=== PATIENT | female | born 2000 | race Caucasian/White ===

== ENCOUNTER 2019-10-13 17:47 | Emergency (ER) | payer BC ==
[~2019-10-13] VITALS: Ht 175.3 cm; Wt 59.0 kg
[2019-10-13 18:21] LABS: BASOPHILS % (AUTO) 0.4 % (0-1); EOSINOPHILS % (AUTO) 0.5 % (0-6); HEMATOCRIT 42.2 % (35.0-45.0); HEMOGLOBIN 14.4 g/dl (12.0-16.0); LYMPHOCYTES # (AUTO) 1.5 X10'3 (1.1-4.8); LYMPHOCYTES % (AUTO) 18.9 % (21-51); MEAN CORPUSCULAR HEMOGLOBIN 29.4 PG (27.0-31.0); MEAN CORPUSCULAR VOLUME 86.4 FL (78-98); MEAN PLATELET VOLUME 9.1 FL (7.4-10.4); MONOCYTES # (AUTO) 0.4 X10'3 (0-0.9); NEUTROPHILS % (AUTO) 75.2 % (42-75); PLATELET COUNT 208 X10'3 (140-440); RED BLOOD COUNT 4.89 X10'6 (4.20-5.60); RED CELL DISTRIBUTION WIDTH 12.4 % (11.5-14.5)
[2019-10-13 18:31] LABS: ALANINE AMINOTRANSFERASE 18 U/L (12-78); ALBUMIN 4.4 G/DL (3.4-5.0); ALBUMIN/GLOBULIN RATIO 1.3 (1.1-1.5); ALKALINE PHOSPHATASE 67 IU/L (20-180); ANION GAP 9 (8-16); ASPARTATE AMINO TRANSFERASE 17 U/L (10-37); BILIRUBIN,TOTAL 0.8 MG/DL (0.1-1.0); BLOOD UREA NITROGEN 9 MG/DL (7-18); BUN/CREATININE RATIO 10.1 (6.6-38.0); CALCIUM 9.2 MG/DL (8.5-10.1); CHLORIDE 106 MMOL/L (99-107); CREATININE 0.89 MG/DL (0.40-0.90); GLUCOSE 124 MG/DL (70-104); POTASSIUM 3.7 MMOL/L (3.5-5.1); SODIUM 143 MMOL/L (135-145); TOTAL PROTEIN 7.7 G/DL (6.4-8.2); eGFR 81 ML/MIN
[2019-10-13 18:38] LABS: ETHANOL < 0.010 GM/DL (0.0-0.010)
[2019-10-13 18:59] LABS: URINE HCG NEGATIVE (NEG)
--- NOTE | 2019-10-13 18:59 | NUR ---
19 year old female moved to bed 26 from the main ER. She initially self presented to the ER for mental health evaluation and treatment. She has been seeking mental health services after having increasing depression, suicidal thoughts to use a gun, and high anxiety. She stated that she has made an appointment for hyponotherapy and a therapist appointment. Earlier in the day she went to [facility] and they referred her to the ER. She denies that she is actively hallucinating but she did have a response delay but she also is currently very anxious. She does not take any psychiatric medications and she has never been in a psychiatric hospital. She is currently a student at [employer] and lives at home with her grandmother, mother and her brother. She stated that she has thoughts of shooting herself in the head but does not have the intent and she does not have access to weapons.
[2019-10-13] MEDS ORDERED: NO HOME MEDS (19:10)
[2019-10-13 19:13] LABS: URINE AMPHETAMINE SCREEN NEGATIVE (Neg); URINE BARBITUATE SCREEN NEGATIVE (Neg); URINE BENZODIAZEPINES SCREEN NEGATIVE (Neg); URINE CANNABINOID SCREEN POSITIVE (Neg); URINE COCAINE SCREEN NEGATIVE (Neg); URINE METHADONE SCREEN NEGATIVE (Neg); URINE OPIATE SCREEN NEGATIVE (Neg); URINE PHENCYCLIDINE SCREEN NEGATIVE (Neg)
[2019-10-13] MEDS ORDERED: LORazepam 1 MG tablet PO ONE ×2 (20:15→21:55)
--- NOTE | 2019-10-13 20:21 | NUR ---
The patient is up and restless. She is complaining of high anxiety. Dr. Elizalde made aware and orders received.
--- NOTE | 2019-10-13 22:29 | NUR ---
The patient complained of continued anxiety and Greg RN notifed MD and orders received.
[2019-10-13] MEDS ORDERED: quetiapine 100mg tablet PO ONE (22:55)
--- NOTE | 2019-10-13 23:02 | NUR ---
Patient requesting to have sleeping medication. Dr. Elizalde made aware and orders received. The patient was made aware that [facility] would not be able to see the patient tonight.
--- NOTE | 2019-10-13 23:47 | NUR ---
The patient appears to be sleeping
--- NOTE | 2019-10-14 01:58 | NUR ---
The patient appears to be sleeping
--- NOTE | 2019-10-14 04:24 | NUR ---
The patient appears to be asleep
[2019-10-14 05:23] VITALS: BP 108/69
--- NOTE | 2019-10-14 11:34 | NUR ---
[facility] HAS RELEASED PT FROM [address] CLARK WILL DC PT.
== END 2019-10-14 12:00 | disposition home or self-care (01) ==
LOC: ER 17:48
DX: R45.851 Suicidal ideations (principal); F90.9 Attention-deficit hyperactivity disorder, unspecified type; F17.200 Nicotine dependence, unspecified, uncomplicated; F12.90 Cannabis use, unspecified, uncomplicated; R94.6 Abnormal results of thyroid function studies
CPT/HCPCS: 36415; 80053; 80305; 80320; 81025; 84443; 85025; 99284

== ENCOUNTER 2022-05-15 21:53 | Emergency (ER) | payer BC, SELFPAY ==
[~2022-05-15] VITALS: Ht 172.7 cm; Wt 61.4 kg
[~2022-05-15 21:53] MED LIST: NO HOME MEDS
[2022-05-15 23:35] LABS: URINE HCG NEGATIVE (NEG)
[2022-05-15 23:37] LABS: CLARITY,URINE CLOUDY (Clear); COLOR,URINE YELLOW (Yellow); GLUCOSE, URINE NEGATIVE (Neg); KETONES,URINE TRACE mg/dl (Neg); LEUKOCYTE ESTERASE ,URINE NEGATIVE (Neg); NITRITES, URINE NEGATIVE (Neg); OCCULT BLOOD,URINE SMALL (Neg); PROTEIN,URINE TRACE mg/dl (Neg); UROBILINOGEN,URINE 0.2 E.U/dL (0.2-1.0)
[2022-05-15] MEDS ORDERED: diphenhydrAMINE 25mg capsule PO ONE (23:40)
[2022-05-15] MEDS ORDERED: LORazepam 1 MG tablet PO ONE (23:40)
[2022-05-15 23:43] LABS: UA COLLECTION TYPE CLN CATCH MIDSTREAM
[2022-05-15 23:44] LABS: MUCUS STRANDS MODERATE /LPF (Neg); SQUAMOUS EPITHELIAL CELL,UR MANY /LPF (FEW)
[2022-05-15 23:45] LABS: CAL OXALATE CRYSTALS 4+ /HPF (NEGATIVE)
[2022-05-15 23:46] LABS: BACTERIA,URINE 1+ /HPF (Neg)
[2022-05-15 23:47] LABS: TRANSITIONAL EPI CELLS,URINE FEW /HPF; WBC,URINE 0-4 /HPF (0-4)
[2022-05-15 23:49] LABS: URINE AMPHETAMINE SCREEN NEGATIVE (Neg); URINE BARBITUATE SCREEN NEGATIVE (Neg); URINE BENZODIAZEPINES SCREEN NEGATIVE (Neg); URINE CANNABINOID SCREEN NEGATIVE (Neg); URINE COCAINE SCREEN NEGATIVE (Neg); URINE METHADONE SCREEN NEGATIVE (Neg); URINE OPIATE SCREEN NEGATIVE (Neg); URINE PHENCYCLIDINE SCREEN NEGATIVE (Neg)
[2022-05-15 23:51] LABS: BASOPHILS % (AUTO) 0.5 % (0-1); EOSINOPHILS # (AUTO) 0.2 X10'3 (0-0.9); HEMATOCRIT 39.3 % (35.0-45.0); HEMOGLOBIN 13.4 g/dl (12.0-16.0); LYMPHOCYTES # (AUTO) 2.2 X10'3 (1.1-4.8); LYMPHOCYTES % (AUTO) 26.4 % (21-51); MEAN CORPUSCULAR HEMOGLOBIN 29.7 PG (27.0-31.0); MEAN CORPUSCULAR HGB CONC 34.1 g/dL (33.0-36.5); MEAN PLATELET VOLUME 9.6 FL (7.4-10.4); MONOCYTES # (AUTO) 0.9 X10'3 (0-0.9); MONOCYTES % (AUTO) 10.5 % (2-12); NEUTROPHILS % (AUTO) 60.6 % (42-75); PLATELET COUNT 202 X10'3 (140-440); RED BLOOD COUNT 4.52 X10'6 (4.20-5.60); RED CELL DISTRIBUTION WIDTH 12.4 % (11.5-14.5); WHITE BLOOD COUNT 8.3 X10'3 (4.5-11.0)
[2022-05-15 23:58] LABS: ALANINE AMINOTRANSFERASE 12 U/L (12-78); ALBUMIN 4.3 G/DL (3.4-5.0); ALBUMIN/GLOBULIN RATIO 1.3 (1.1-1.5); ALKALINE PHOSPHATASE 54 IU/L (46-116); ANION GAP 6 (8-16); ASPARTATE AMINO TRANSFERASE 14 U/L (10-37); BILIRUBIN,TOTAL 0.4 MG/DL (0.1-1.0); BLOOD UREA NITROGEN 10 MG/DL (7-18); BUN/CREATININE RATIO 10.2 (6.6-38.0); CHLORIDE 106 MMOL/L (99-107); CREATININE 0.98 MG/DL (0.40-0.90); GLUCOSE 72 MG/DL (70-104); SODIUM 143 MMOL/L (135-145); TOTAL CARBON DIOXIDE 31.3 MMOL/L (24-32); TOTAL PROTEIN 7.5 G/DL (6.4-8.2); eGFR 70 ML/MIN
--- NOTE | 2022-05-16 01:10 | NUR ---
ASSUMED CARE OF PT. PT ROOMED TO BED 13. PT IN GREEN SCRUBS.
--- NOTE | 2022-05-16 02:00 | NUR ---
PT PROVIDED WITH A BLANKET. LIGHT TURNED OFF IN ROOM. PT ATTEMPTING TO SLEEP.
--- NOTE | 2022-05-16 03:10 | NUR ---
PT SLEEPING IN PRONE POSITION. EQUAL RISE AND FALL OF CHEST.
--- NOTE | 2022-05-16 04:00 | NUR ---
PT SLEEPING ON HER SIDE. EQUAL RISE AND FALL OF CHEST.
--- NOTE | 2022-05-16 05:00 | NUR ---
PT SLEEPING COMFORTABLY. EQUAL RISE AND FALL OF CHEST.
--- NOTE | 2022-05-16 06:00 | NUR ---
PT SLEEPING IN PRONE POSITION. EQUAL RISE AND FALL OF CHEST.
--- NOTE | 2022-05-16 08:17 | NUR ---
Patient awake and laying supine in bed. RN gave patient her breakfast. Patient smiled and is calm and cooperative. No distress observed.
[2022-05-16 10:18] VITALS: BP 105/71
[2022-05-17] MEDS ORDERED: METH-350 PO (20:50)
[2022-05-17] MEDS ORDERED: DESV25TA2 PO (20:50)
[2022-05-17] MEDS ORDERED: LORAZEPAM (20:50)
[2022-05-17] MEDS ORDERED: LITH150C8 PO (20:50)
[2022-05-17] MEDS ORDERED: RISP0.5T65 PO (20:50)
[2022-05-17] MEDS ORDERED: LURA40TA2 PO (20:51)
[2022-05-17] MEDS ORDERED: LURA20TA PO (20:51)
== END 2022-05-16 10:54 | disposition home or self-care (01) ==
LOC: ER 21:53
DX: R45.851 Suicidal ideations (principal); Z20.822 Contact with and (suspected) exposure to COVID-19; F31.9 Bipolar disorder, unspecified; F12.10 Cannabis abuse, uncomplicated; Z79.899 Other long term (current) drug therapy
CPT/HCPCS: 36415; 80053; 80305; 80320; 81001; 81025; 84443; 85025; 87811; 99285; Q0163

== ENCOUNTER 2022-05-17 14:17 | Emergency (ER) | payer BC, MEDICAID ==
[~2022-05-17] VITALS: Ht 172.7 cm; Wt 61.4 kg
[2022-05-17] MEDS ORDERED: LORAZEPAM (20:50)
[2022-05-17] MEDS ORDERED: METH-350 PO (20:50)
[2022-05-17] MEDS ORDERED: DESV25TA2 PO (20:50)
[2022-05-17] MEDS ORDERED: LITH150C8 PO (20:50)
[2022-05-17] MEDS ORDERED: RISP0.5T65 PO (20:50)
[2022-05-17] MEDS ORDERED: LURA40TA2 PO (20:51)
[2022-05-17] MEDS ORDERED: LURA20TA PO (20:51)
[2022-05-17] MEDS ORDERED: ibuprofen tablet 400 MG TABLET PO ONE (21:00)
[2022-05-17 21:01] LABS: BASOPHILS % (AUTO) 0.5 % (0-1); EOSINOPHILS # (AUTO) 0.1 X10'3 (0-0.9); EOSINOPHILS % (AUTO) 1.3 % (0-6); HEMATOCRIT 40.6 % (35.0-45.0); HEMOGLOBIN 13.7 g/dl (12.0-16.0); LYMPHOCYTES # (AUTO) 1.6 X10'3 (1.1-4.8); LYMPHOCYTES % (AUTO) 19.1 % (21-51); MEAN CORPUSCULAR HEMOGLOBIN 29.4 PG (27.0-31.0); MEAN CORPUSCULAR HGB CONC 33.7 g/dL (33.0-36.5); MEAN CORPUSCULAR VOLUME 87.3 FL (78-98); MEAN PLATELET VOLUME 9.4 FL (7.4-10.4); MONOCYTES # (AUTO) 0.5 X10'3 (0-0.9); MONOCYTES % (AUTO) 6.2 % (2-12); NEUTROPHILS # (AUTO) 6.1 X10'3 (1.8-7.7); NEUTROPHILS % (AUTO) 72.9 % (42-75); PLATELET COUNT 190 X10'3 (140-440); RED BLOOD COUNT 4.65 X10'6 (4.20-5.60); RED CELL DISTRIBUTION WIDTH 12.8 % (11.5-14.5); WHITE BLOOD COUNT 8.3 X10'3 (4.5-11.0)
[2022-05-17 21:09] LABS: ALANINE AMINOTRANSFERASE 14 U/L (12-78); ALBUMIN 4.1 G/DL (3.4-5.0); ALBUMIN/GLOBULIN RATIO 1.2 (1.1-1.5); ALKALINE PHOSPHATASE 58 IU/L (46-116); ANION GAP 7 (8-16); ASPARTATE AMINO TRANSFERASE 13 U/L (10-37); BILIRUBIN,TOTAL 0.4 MG/DL (0.1-1.0); BLOOD UREA NITROGEN 7 MG/DL (7-18); BUN/CREATININE RATIO 6.4 (6.6-38.0); CALCIUM 9.3 MG/DL (8.5-10.1); CHLORIDE 105 MMOL/L (99-107); ETHANOL < 0.010 GM/DL (0.0-0.010); GLUCOSE 91 MG/DL (70-104); SODIUM 143 MMOL/L (135-145); TOTAL CARBON DIOXIDE 31.1 MMOL/L (24-32); TOTAL PROTEIN 7.5 G/DL (6.4-8.2); eGFR 62 ML/MIN
[2022-05-17] MEDS ORDERED: LORazepam 1 MG tablet PO ONE (21:45)
[2022-05-17 21:48] LABS: URINE HCG NEGATIVE (NEG)
[2022-05-17 21:59] LABS: URINE AMPHETAMINE SCREEN NEGATIVE (Neg); URINE BARBITUATE SCREEN NEGATIVE (Neg); URINE BENZODIAZEPINES SCREEN NEGATIVE (Neg); URINE CANNABINOID SCREEN NEGATIVE (Neg); URINE COCAINE SCREEN NEGATIVE (Neg); URINE METHADONE SCREEN NEGATIVE (Neg); URINE OPIATE SCREEN NEGATIVE (Neg); URINE PHENCYCLIDINE SCREEN NEGATIVE (Neg)
[2022-05-18] MEDS ORDERED: LORazepam 0.5 MG tablet PO PRN (02:25)
[2022-05-18] MEDS ORDERED: LORA-268 PO (02:27)
[2022-05-18] MEDS ORDERED: risperiDONE 0.5mg tablet PO SCH ×2 (08:00→21:00)
[2022-05-18] MEDS: DESVENLAFAXINE SUCCINATE 25 MG PO SCH ×2 (08:00→10:34)
--- NOTE | 2022-05-18 08:23 | NUR ---
PT IS COVID NEG AND MOVED TO OF26
[2022-05-18] MEDS ORDERED: RISP0.5T74 PO (09:45)
[2022-05-18] MEDS ORDERED: LITH150C8 PO (09:45)
--- NOTE | 2022-05-18 09:56 | NUR ---
UA collected and sent.
--- NOTE | 2022-05-18 09:56 | NUR ---
Clarified medications, completed med rec. Sent pt's own meds to the pharmacy.
[2022-05-18 10:18] LABS: CLARITY,URINE CLEAR (Clear); COLOR,URINE YELLOW (Yellow); GLUCOSE, URINE NEGATIVE (Neg); KETONES,URINE NEGATIVE (Neg); LEUKOCYTE ESTERASE ,URINE NEGATIVE (Neg); NITRITES, URINE NEGATIVE (Neg); OCCULT BLOOD,URINE SMALL (Neg); PROTEIN,URINE NEGATIVE (Neg); UROBILINOGEN,URINE 0.2 E.U/dL (0.2-1.0)
[2022-05-18 10:27] LABS: UA COLLECTION TYPE CLN CATCH MIDSTREAM
[2022-05-18 10:28] LABS: BACTERIA,URINE NONE SEEN /HPF (Neg); MUCUS STRANDS NONE SEEN /LPF (Neg); RBC,URINE 0-2 /HPF (0-2); SQUAMOUS EPITHELIAL CELL,UR MODERATE /LPF (FEW); WBC,URINE NONE SEEN /HPF (0-4)
[2022-05-18] MEDS: lurasidone 20mg tablet PO SCH (10:31)
[2022-05-18] MEDS: nicotine 7mg patch - 24hr TD SCH (10:33)
[2022-05-18] MEDS: methylphenidate 5mg tablet PO SCH ×2 (10:35→13:50)
--- NOTE | 2022-05-18 10:40 | NUR ---
Shannan kurtz in EDM - 05/18/22 at 1040 by DENNISE Did not administer Prisiq or Risperdal this morning. Pt states she takes her Pristiq at night and she took it las
--- NOTE | 2022-05-18 10:40 | NUR ---
Did not administer Prisiq or Risperdal this morning. Pt states she takes her Pristiq at night and she took it last night. Pt also only takes her Risperdal at night. Will fix med rec and orders.
[2022-05-18] MEDS ORDERED: DESV25TA PO (10:44)
--- NOTE | 2022-05-18 11:05 | NUR ---
Pt reports that she had been playing around with her medication times as she did not have a psychiatrist. Educated pt on why this is not a good idea. Clarified that pt is supposed to take her Burden at bedtime. Pt expressed understanding. Pt rates her depression today at an 8/10, she currently denies SI. Pt has no history of past suicide attempts. Pt has been trying to establish care with a mental health provider and has an appointment in May. Pt is wishing to speak with a psychiatrist and is feeling like she needs to be hospitalized in a psych facility.
--- NOTE | 2022-05-18 11:36 | NUR ---
[facility] is at bedside evaluating the patient.
--- NOTE | 2022-05-18 11:36 | NUR ---
Pt is being placed on a [employer].
--- NOTE | 2022-05-18 12:28 | NUR ---
Pt is requesting something for cramps. Pt reports that she is on her period. Pt states that she normally takes ibuprofen 200 mg. Addendum: 05/18/22 at 1232 by DENNISE Pt was given a one time dose of 400 mg last night which she tolerated.
[2022-05-18] MEDS ORDERED: venlafaxine 25mg tablet PO SCH (13:00)
[2022-05-18] MEDS ORDERED: ibuprofen tablet 400 MG TABLET PO ONE ×2 (13:30→21:15)
--- NOTE | 2022-05-18 13:30 | NUR ---
Mom was at bedside for a visit. She is going to buy some books for patient and will drop them off later.
--- NOTE | 2022-05-18 13:53 | NUR ---
Pt was given a one time dose of Motrin 400 mg. Pt is watching TV.
--- NOTE | 2022-05-18 14:21 | NUR ---
Pt received a couple of books dropped off by mom.
--- NOTE | 2022-05-18 16:15 | NUR ---
Pt is watching TV.
--- NOTE | 2022-05-18 19:21 | NUR ---
Patient is pleasant and cooperative; observed watching TV and snacking. No apparent distress.
[2022-05-18] MEDS ORDERED: lurasidone 20mg tablet PO SCH (21:00)
[2022-05-18] MEDS ORDERED: DESVENLAFAXINE SUCCINATE 25 MG PO SCH (21:00)
[2022-05-18] MEDS ORDERED: lithium carbonate 150mg capsule PO SCH (21:00)
--- NOTE | 2022-05-18 21:06 | NUR ---
The patient has been accepted at [facility] by Dr. Ambreen Cole
--- NOTE | 2022-05-19 00:01 | NUR ---
Patient observed sleeping; no apparent distress and self repositioning.
--- NOTE | 2022-05-19 03:54 | NUR ---
Patient observed sleeping; no apparent distress and continues to self reposition.
--- NOTE | 2022-05-19 05:14 | NUR ---
Patient observed sleeping; no apparent distress at this time and self repositiong.
[2022-05-19 05:46] VITALS: BP 101/67
--- NOTE | 2022-05-19 06:30 | NUR ---
Received report from VERITO Rodgers. Assumed patient care at this time. Patient sleeping. Patient is on line of sight observation at this time.
--- NOTE | 2022-05-19 07:55 | NUR ---
Patient awake and 0800 medications administered. Patient eating breakfast. Assessment completed.
--- NOTE | 2022-05-19 08:05 | NUR ---
Spoke to [facility], high lift driver will be here to pick pt. up at [id number]
[2022-05-19] MEDS: nicotine 7mg patch - 24hr TD SCH (08:08)
[2022-05-19] MEDS: lurasidone 20mg tablet PO SCH (08:11)
[2022-05-19] MEDS: methylphenidate 5mg tablet PO SCH (08:33)
--- NOTE | 2022-05-19 09:15 | NUR ---
Removed inventory from locked locker room and compared to belonging list in chart. All belongings from list accounted for in patients belongings bags. Patient to leave at 1045. Went to Pharmacy and picked up all stored medications. Sandi picked up a sack lunch for the patient to take with her to [place] in [place] this morning.
== END 2022-05-19 11:20 ==
LOC: ER 14:18
DX: R45.851 Suicidal ideations (principal); Z20.822 Contact with and (suspected) exposure to COVID-19; F31.9 Bipolar disorder, unspecified; Z79.899 Other long term (current) drug therapy; Z79.1 Long term (current) use of non-steroidal anti-inflammatories (NSAID)
CPT/HCPCS: 36415; 80053; 80178; 80305; 80320; 81001; 81025; 85025; 87811; 99285

== ENCOUNTER 2023-02-02 20:00 | Emergency (ER) | payer BC, MEDICAID ==
[~2023-02-02 20:00] MED LIST changes: +DESV25TA PO; +LITH150C8 PO; +LORA-268 PO; +LURA20TA8 PO; +LURA40TA2 PO; +METH-350 PO; -NO HOME MEDS; +RISP0.5T74 PO
== END 2023-02-02 22:47 | disposition left against medical advice (07) ==
LOC: ER 20:00
DX: R51.9 Headache, unspecified (principal); Z53.21 Procedure and treatment not carried out due to patient leaving prior to being seen by health care provider
CPT/HCPCS: 99281